=== PATIENT | female | born 1995 | race Caucasian/White ===

== ENCOUNTER 2020-09-26 13:17 | Emergency (ER) | payer SELFPAY ==
[~2020-09-26] VITALS: Ht 162.6 cm; Wt 54.4 kg
--- NOTE | 2020-09-26 13:50 | NUR ---
Patient discharged to home in stable condition. Written and verbal after care instructions given. Patient verbalizes understanding of instructions. Stressed follow up or return to ER for worsening s/s.
== END 2020-09-26 13:50 | disposition home or self-care (01) ==
LOC: ER 13:17
DX: L72.3 Sebaceous cyst (principal)
CPT/HCPCS: A4663